=== PATIENT | female | born 1965 | race African-American/Black ===

== ENCOUNTER 2019-01-20 10:14 | Emergency (ER) | payer MEDICAID ==
[~2019-01-20] VITALS: Ht 152.4 cm; Wt 72.6 kg
[2019-01-20] MEDS ORDERED: AMOXICILLIN500 MG ORAL (10:43)
--- NOTE | 2019-01-20 10:50 | NUR ---
ER DISCHARGE NOTE: Patient is cleared to be discharged per ERMD, pt is aox4, on room air, with stable vital signs. pt was given dc and prescription instructions, pt was able to verbalize understanding, pt is able to ambulate with steady gait. pt took all belongings.
[2019-01-20 11:08] VITALS: BP 166/110
[2019-01-20 11:10] VITALS: BP 155/98
--- NOTE | 2019-01-20 13:11 | Emergency Room Report ---
History of Present Illness General Chief Complaint: Flu Like Symptoms Source: Patient Present Illness HPI 54-year-old female presents ED for evaluation. Complaining of cough and congestion and earache times . Pain is dull, 7 out of 10, nonradiating. Cough is productive with yellowish phlegm. Denies fevers or chills. Denies sick contacts or recent travel. No other aggravating relieving factors. Denies any other associated symptoms Allergies: Coded Allergies: PENICILLINS (Verified Allergy, Unknown, 01/20/19) Patient History Past Medical History: none Past Surgical History: none Pertinent Family History: none Social History: Denies: smoking, alcohol use, drug use Last Menstrual Period: none Now: No Immunizations: UTD Reviewed Nursing Documentation: PMH: Agreed; PSxH: Agreed Nursing Documentation-PMH Past Medical History: No Stated History Review of Systems All Other Systems: negative except mentioned in HPI Physical Exam Vital Signs Date Time Temp Pulse Resp B/P (MAP) Pulse Ox O2 Delivery O2 Flow Rate FiO2 01/20/19 10:16 98.2 86 20 94 Room Air 01/20/19 11:08 166/110 Sp02 EP Interpretation: reviewed, normal General Appearance: no apparent distress, alert, GCS 15, non-toxic Head: normocephalic Eyes: bilateral eye normal inspection, bilateral eye PERRL ENT: normal pharynx, no angioedema, uvula midline, other - R TM cloudy. fluid behind R TM Neck: full range of motion, supple, no meningismus, supple/symm/no masses Respiratory: normal inspection Cardiovascular #1: normal inspection Gastrointestinal: normal inspection Rectal: deferred Genitourinary: no CVA tenderness Musculoskeletal: normal inspection Neurologic: alert, oriented x3, responsive, motor strength/tone normal, sensory intact, speech normal Psychiatric: normal inspection Skin: normal inspection Lymphatic: normal inspection Medical Decision Making Diagnostic Impression: Primary Impression: Otitis media Qualified Codes: H66.90 - Otitis media, unspecified, unspecified ear ER Course Hospital Course 54-year-old F presents to ED with pain R ear, with cough Differential diagnoses include: TM perforation, otitis externa, otitis media Clinical course Patient placed on stretcher. After initial history, physical exam reveals a female in no acute distress. Right TM cloudy with fluid behind TM. Remainder physical exam unremarkable. Lungs clear. No pharyngeal erythema. Discussed findings with patient. Concerning for otitis media. We'll discharge with antibiotics. Recommend [id number] multisymptom cold and flu medication. Safe for discharge with close outpatient follow-up. Just moved here does not have a PMD. We'll provide referrals Diagnosis - otitis media Stable and discharged to home with Rx amoxicillin. Followup with PMD. Return to ED if symptoms recur or worsen Last Vital Signs Date Time Temp Pulse Resp B/P (MAP) Pulse Ox O2 Delivery O2 Flow Rate FiO2 01/20/19 11:10 98.2 80 20 155/98 94 Room Air Status: improved Disposition: HOME, SELF-CARE Condition: Stable Scripts Amoxicillin* (AMOXIL*) 500 Mg Capsule 500 MG ORAL THREE TIMES A DAY for 10 Days, CAP Prov: Jono Schultz MD 01/20/19 Referrals: NOT CHOSEN [facility]/,REFERRING (PCP) [facility] Patient Instructions: Otitis Media, Adult, [id number] Additional Instructions: take tylenol cold and flu or similar multi symptom over the counter medication for your symtpoms. Jono Schultz MD January 20, 2019 13:11
== END 2019-01-20 10:50 | disposition home or self-care (01) ==
LOC: EDBD 10:14 → EMR 10:50
DX: H66.91 Otitis media, unspecified, right ear (principal); R05 Cough; Z88.0 Allergy status to penicillin
CPT/HCPCS: 99282

== ENCOUNTER 2019-02-01 10:30 | Emergency (ER) | payer MEDICAID ==
[~2019-02-01] VITALS: Ht 152.4 cm; Wt 70.3 kg
[~2019-02-01 10:30] MED LIST: AMOXICILLIN500 MG ORAL
[2019-02-01] MEDS ORDERED: NKM (10:42)
--- NOTE | 2019-02-01 10:43 | NUR ---
ED Nurse Note: PT WALKED IN TO ER TODAY FROM HOME. AOX4. PT C/O SORE THROAT RADIATING TO BILATERAL EARS X YESTERDAY. PT DENIES COUGH OR FEVER. PT STATES SHE WAS SEEN AT [facility] ER X 2 WEEKS AGO AND GIVEN ABX REGIMEN WHICH PT HAS FINISHED. PT STATES SYMPTOMS WENT AWAY INITIALLY BUT RETURNED YESTERDAY.
[2019-02-01 10:44] VITALS: BP 152/84
[2019-02-01] MEDS ORDERED: PREDNISONE20 MG ORAL (11:23)
[2019-02-01] MEDS ORDERED: AUGMENTIN 875-1 EAC1 ORAL (11:23)
--- NOTE | 2019-02-01 11:27 | NUR ---
ER DISCHARGE NOTE: Patient is cleared to be discharged per ERMD, pt is aox4, on room air, with stable vital signs. pt was given dc and prescription instructions, pt was able to verbalize understanding, pt id band removed without complications. pt is able to ambulate with steady gait. pt took all belongings.
--- NOTE | 2019-02-01 16:17 | Emergency Room Report ---
History of Present Illness General Chief Complaint: Sore Throat Source: Patient Present Illness HPI 54-year-old female presents ED for evaluation. Patient complaining of bilateral ear ache and congestion for the last 2 weeks. Was seen in ER 2 weeks ago and was prescribed antibiotics. States the symptoms resolved and then resumed after antibiotics were finished. Describes throbbing pain, congestion, 8 out of 10, nonradiating. Denies fevers or chills. Denies sore throat. Denies cough. No other aggravating relieving factors. Denies any other associated symptoms Allergies: Coded Allergies: PENICILLINS (Verified Allergy, Unknown, 02/01/19) Patient History Past Medical History: none Past Surgical History: none Pertinent Family History: none Social History: Denies: smoking, alcohol use, drug use Last Menstrual Period: 8 YEARS AGO Now: No Immunizations: UTD Reviewed Nursing Documentation: PMH: Agreed; PSxH: Agreed Nursing Documentation-PMH Past Medical History: No Stated History Review of Systems All Other Systems: negative except mentioned in HPI Physical Exam Vital Signs Date Time Temp Pulse Resp B/P (MAP) Pulse Ox O2 Delivery O2 Flow Rate FiO2 02/01/19 10:36 97.9 73 16 154/88 (110) 96 Room Air Sp02 EP Interpretation: reviewed, normal General Appearance: no apparent distress, alert, GCS 15, non-toxic Head: normocephalic Eyes: bilateral eye normal inspection, bilateral eye PERRL ENT: hearing grossly normal, normal pharynx, no angioedema, normal voice, uvula midline, other - cloudy TM bilaterally. fluid behind TM Neck: normal inspection Respiratory: normal inspection Cardiovascular #1: normal inspection Gastrointestinal: normal inspection Rectal: deferred Genitourinary: no CVA tenderness Musculoskeletal: normal inspection Neurologic: alert, oriented x3, responsive, motor strength/tone normal, sensory intact, speech normal Psychiatric: normal inspection Skin: normal inspection Lymphatic: normal inspection Medical Decision Making Diagnostic Impression: Primary Impression: Otitis media Qualified Codes: H66.93 - Otitis media, unspecified, bilateral ER Course Hospital Course 54-year-old F presents to ED with pain bilateral ear. no fever. Differential diagnoses include: TM perforation, otitis externa, otitis media Clinical course Patient placed on stretcher. After initial history, physical exam reveals a middle aged female in no acute distress. There is clotted TM bilaterally with fluid behind ear canal. Remainder physical exam unremarkable Navin findings with patient. We will attempt to treat with course of steroids first. We'll also prescribe antibiotics if symptoms do not resolve. I saw this patient last. I asked if she was able to make follow-up appointment with her PMD. States she was not aware that she was supposed to. Patient showed me her discharge paperwork from last visit which shows PMD referrals. I'll provide ENT referrals however I do encourage patient follow up with a PMD as well Diagnosis - otitis media Stable and discharged to home with Rx prednisone, augmentin. Followup with PMD. Return to ED if symptoms recur or worsen Last Vital Signs Date Time Temp Pulse Resp B/P (MAP) Pulse Ox O2 Delivery O2 Flow Rate FiO2 02/01/19 11:27 98.0 76 17 148/84 99 Room Air Status: improved Disposition: HOME, SELF-CARE Condition: Stable Scripts Prednisone* (PREDNISONE*) 20 Mg Tablet 40 MG ORAL DAILY, #10 TAB Prov: Jono Schultz MD 02/01/19 Amoxicillin/Potassium Clav 875-125* (AUGMENTIN 875-125 TABLET*) 1 Each Tablet 1 TAB ORAL TWICE A DAY, #14 TAB Prov: Jono Schultz MD 02/01/19 Referrals: [facility],REFERRING (PCP) Casi Moya MD Patient Instructions: Otitis Media With Effusion Jono Schultz MD February 01, 2019 16:17
== END 2019-02-01 11:27 | disposition home or self-care (01) ==
LOC: EMR 11:15
DX: H66.93 Otitis media, unspecified, bilateral (principal); Z88.0 Allergy status to penicillin
CPT/HCPCS: 99283

== ENCOUNTER 2020-06-16 12:07 | Emergency (ER) | payer MEDICAID ==
[~2020-06-16] VITALS: Ht 152.4 cm; Wt 73.5 kg
[~2020-06-16 12:07] MED LIST changes: +AUGMENTIN 875-1 EAC1 ORAL; +NKM; +PREDNISONE20 MG ORAL
--- NOTE | 2020-06-16 12:22 | NUR ---
ED Nurse Note: pt presents to ED with bilat hand rashes that started back in January that has been recurrent. pt states that the rash comes and goes but that it causes her hands to become dry and the skin to crack which causes pain. pt states that she used steroid cream over the affected area without much relief of symptoms. skin on bilat hands seem to be dry and flakey, R worse than L
[2020-06-16 12:24] VITALS: BP 163/113
--- NOTE | 2020-06-16 12:52 | Emergency Room Report ---
History of Present Illness General Chief Complaint: Skin Rash/Abscess Source: Patient Present Illness HPI 55-year-old female with history of hypertension currently taking medication here complaining of a rash on both hands ongoing for several months has recently been more pruritic and painful. Patient reports that she wears latex gloves every day and uses bleach to clean the house. Reports that has history of eczema and takes Claritin for her allergies and eczema. Has not followed primary doctor. Has not taken blood pressure medication today. Denies any chest pain, shortness of breath, headache and dizziness. Denies fever and chills, anaphylaxis, no other associated symptoms. The rash is mainly limited to the palm of right hand. Patient reports that she is right-handed and often uses right hand to clean her house. Allergies: Coded Allergies: No Known Allergies (Unverified , 06/16/20) COVID-19 Screening Contact w/high risk pt: No Experienced COVID-19 symptoms?: No COVID-19 Testing performed PRESS CLIPPER: No Patient History Past Medical History: see triage record Past Surgical History: none Pertinent Family History: none Now: No Immunizations: UTD Reviewed Nursing Documentation: PMH: Agreed; PSxH: Agreed Nursing Documentation-PMH Past Medical History: No Stated History Review of Systems All Other Systems: negative except mentioned in HPI Physical Exam Vital Signs Date Time Temp Pulse Resp B/P (MAP) Pulse Ox O2 Delivery O2 Flow Rate FiO2 06/16/20 12:15 98.2 72 18 163/113 (130) 95 Room Air Sp02 EP Interpretation: reviewed, normal General Appearance: no apparent distress, alert, GCS 15, non-toxic Head: normocephalic, atraumatic Eyes: bilateral eye normal inspection, bilateral eye PERRL ENT: hearing grossly normal, normal pharynx, no angioedema, normal voice Neck: full range of motion, supple/symm/no masses Respiratory: chest non-tender, lungs clear, normal breath sounds, speaking full sentences Cardiovascular #1: regular rate, rhythm, no edema Gastrointestinal: normal bowel sounds, non tender, soft, non-distended, no guarding, no rebound Genitourinary: no CVA tenderness Musculoskeletal: back normal Neurologic: alert, motor strength/tone normal, oriented x3, sensory intact, responsive, speech normal Psychiatric: judgement/insight normal, memory normal, mood/affect normal, no suicidal/homicidal ideation Skin: rash - Chronic eczema with superficial cellulitis right hand, eczema left hand Lymphatic: no adenopathy Medical Decision Making PA Attestation All diagnosis and treatment plans were discussed and reviewed by my supervising physician Dr. Berry Diagnostic Impression: Primary Impression: Cellulitis Additional Impression: Eczema ER Course 55-year-old female with history of hypertension currently taking medication here complaining of a rash on both hands ongoing for several months has recently been more pruritic and painful. Patient reports that she wears latex gloves every day and uses bleach to clean the house. Reports that has history of eczema and takes Claritin for her allergies and eczema. Has not followed primary doctor. Has not taken blood pressure medication today. Denies any chest pain, shortness of breath, headache and dizziness. Denies fever and chills, anaphylaxis, no other associated symptoms. The rash is mainly limited to the palm of right hand. Patient reports that she is right-handed and often uses right hand to clean her house. Ddx considered but are not limited to : Cellulitis, eczema, superficial infection, abscess Vital signs: are WNL, pt. is afebrile H&PE are most consistent with: Cellulitis, chronic eczema ORDERS: Triamcinolone cream, prednisone, Keflex ED INTERVENTIONS: Hydrocortisone cream, wound care DISCHARGE: At this time pt. is stable for d/c to home. Will provide printed patient care instructions, and any necessary prescriptions. Care plan and follow up instructions have been discussed with the patient prior to discharge. Advised patient to take medication as directed, avoid using latex and bleach, follow-up with primary doctor for referral to casting coordinator and wind turbine blade repair technician. If worsening symptoms return to the emergency room Last Vital Signs Date Time Temp Pulse Resp B/P (MAP) Pulse Ox O2 Delivery O2 Flow Rate FiO2 06/16/20 12:24 98.2 89 18 163/113 95 Room Air Disposition: HOME, SELF-CARE Condition: Stable Scripts Prednisone* (PREDNISONE*) 20 Mg Tablet 40 MG ORAL DAILY for 5 Days, #10 TAB Prov: Meme Irby 06/16/20 Triamcinolone Acetonide (Triamcinolone Acetonide 0.5% Cream*) 15 Gm Cream..g. 2 GM TP TID, #15 GM Prov: Meme Irby 06/16/20 Cephalexin* (KEFLEX*) 500 Mg Tablet 500 MG ORAL EVERY 6 HOURS for 7 Days, #28 CAP Prov: Meme Irby 06/16/20 Referrals: [facility],REFERRING (PCP) Patient Instructions: Cellulitis, [id number], Eczema Additional Instructions: Take medication as advised, use [id number] Cetaphil cream, follow-up with primary doctor for referral to wind turbine blade repair technician and casting coordinator, avoid using bleach, avoid using latex gloves, if worsening symptoms return to the emergency room Meme Irby Jun 16, 2020 12:52
[2020-06-16] MEDS ORDERED: CEPHALEXIN500 M1 ORAL (12:55)
[2020-06-16] MEDS ORDERED: PREDNISONE20 MG ORAL (12:55)
[2020-06-16] MEDS ORDERED: TRIAMCINOLONE A15 G1 TP (12:55)
[2020-06-16] MEDS ORDERED: Hydrocortisone 1% Cr TOPIC ONE (13:00)
--- NOTE | 2020-06-16 13:02 | NUR ---
ED Nurse Note: cortisone cream applied to pt's hands and they were wrapped per TANIA Valentine instructions, pt tolerated well
[2020-06-16 13:03] VITALS: BP 157/89
== END 2020-06-16 13:00 | disposition home or self-care (01) ==
LOC: EMR 12:19
DX: L03.113 Cellulitis of right upper limb (principal); L30.9 Dermatitis, unspecified
CPT/HCPCS: 99282

== ENCOUNTER 2020-09-25 18:34 | Emergency (ER) | payer MEDICAID ==
[~2020-09-25] VITALS: Ht 165.1 cm; Wt 74.8 kg
[~2020-09-25 18:34] MED LIST changes: +CEPHALEXIN500 M1 ORAL; +TRIAMCINOLONE A15 G1 TP
[2020-09-25 18:45] VITALS: BP 166/99
--- NOTE | 2020-09-25 18:45 | NUR ---
ED Nurse Note: Pt walked in to ED from home c/o generalized body rash x3 months and has gotten worse. Pt also reports itchiness. Denies pain. AAOx4, no SOB.
--- NOTE | 2020-09-25 19:05 | Emergency Room Report ---
History of Present Illness General Chief Complaint: Skin Rash/Abscess Source: Patient Present Illness HPI Patient presents with worsening rash on her hands chest and face. She was seen here in June and told that this was eczema. She was treated with triamcinolone cream. At that time it was noted that she was using bleach around the house with gloves. She is continuing to wear gloves as she is embarrassed about the rash. She is mainly bothered by the itching. It is keeping her awake at night and she gets only 3 hours of sleep. From June the rash now has spread slightly to her upper chest and eyelids. She denies any fevers or chills. No nausea or swelling of her throat. No dizziness. The patient is right-handed. Her tetanus is up-to-date. Patient denies exposure to Covid positive contacts. No sore throat, chest pain, palpitations, vomiting, diarrhea, dysuria, abdominal pain, shortness of breath, joint pain, dizziness, headache. Patient is treated for hypertension. Allergies: Coded Allergies: No Known Allergies (Unverified , 06/16/20) COVID-19 Screening Contact w/high risk pt: No Experienced COVID-19 symptoms?: No COVID-19 Testing performed SENIOR AUDITOR: No Patient History Past Medical History: see triage record, HTN Social History: Denies: smoking, alcohol use, drug use Social History Narrative Patient drove herself here Reviewed Nursing Documentation: PMH: Agreed; PSxH: Agreed Review of Systems All Other Systems: negative except mentioned in HPI Physical Exam Vital Signs Date Time Temp Pulse Resp B/P (MAP) Pulse Ox O2 Delivery O2 Flow Rate FiO2 09/25/20 18:39 97.9 87 19 166/99 (121) 97 Room Air Sp02 EP Interpretation: reviewed, normal General Appearance: well appearing, no apparent distress, GCS 15 Head: normocephalic Eyes: bilateral eye PERRL, bilateral eye other ENT: normal pharynx, no angioedema, moist mucus membranes Neck: full range of motion, supple Respiratory: lungs clear, normal breath sounds Cardiovascular #1: regular rate, rhythm Cardiovascular #2: 2+ radial (R), 2+ radial (L) Gastrointestinal: normal inspection Musculoskeletal: gait/station normal Neurologic: alert, grossly normal Psychiatric: mood/affect normal Skin: rash - Vesicular rash more prominent right hand with hyperpigmentation dorsum of hands. Some lesions in the anterior chest. Medical Decision Making Diagnostic Impression: Primary Impression: Contact dermatitis Qualified Codes: L24.9 - Irritant contact dermatitis, unspecified cause ER Course Patient presents with rash on hands chest and eyelids. Differential includes cellulitis, contact dermatitis, eczema amongst others. Based on the distribution and appearance this is contact dermatitis clinically. Unable to identify causative agents although the use of gloves is suspect. Patient afebrile and nontoxic. There is no erythema and no evidence of infection at this time. Patient's tetanus is up-to-date. Discussed treatment plan with patient. Patient is stable for outpatient observation and treatment. Last Vital Signs Date Time Temp Pulse Resp B/P (MAP) Pulse Ox O2 Delivery O2 Flow Rate FiO2 09/25/20 18:45 97.9 98 19 166/99 97 Room Air Status: unchanged Disposition: HOME, SELF-CARE Condition: Stable Scripts Hydroxyzine Pamoate (VISTARIL) 25 Mg Capsule 25 MG PO TID PRN for Itching, #20 CAP 1 Refill Prov: Brock Aparicio MD 09/25/20 Hydrocortisone 1% Oint (Hydrocortisone 1% Oint*) Y Oint 1 APPLIC TP BID, #30 GM Prov: Brock Aparicio MD 09/25/20 Triamcinolone Acetonide (Triamcinolone Acetonide 0.5% Oint*) 15 Gm Oint...g. 1 APPLIC TP BID, #60 GM Prov: Brock Aparicio MD 09/25/20 Brock Aparicio MD Sep 25, 2020 19:05
[2020-09-25] MEDS ORDERED: TRIAMCINOLONE A15 G3 TP (19:10)
[2020-09-25] MEDS ORDERED: VISTARIL25 M1 PO (19:10)
[2020-09-25] MEDS ORDERED: HYDROCORTISONE28 G2 TP (19:10)
--- NOTE | 2020-09-25 19:13 | NUR ---
HAND-OFF: Report given to Beatriz HARRINGTON.
--- NOTE | 2020-09-25 19:26 | NUR ---
Pt given discharge information and education given regarding prescription given. Discharge paperwork signed and pt walk out to private vehicle. Pt ambulatory with steady gait.
[2020-09-25 19:30] VITALS: BP 166/99
== END 2020-09-25 19:30 | disposition home or self-care (01) ==
LOC: EMR 19:00
DX: L24.9 Irritant contact dermatitis, unspecified cause (principal); I10 Essential (primary) hypertension
CPT/HCPCS: 99282